=== PATIENT | female | born 1960 | race Caucasian/White ===

== ENCOUNTER 2016-04-16 19:47 | Emergency (ER) | payer BC ==
[~2016-04-16] VITALS: Ht 170.2 cm; Wt 74.1 kg
[~2016-04-16 19:47] MED LIST: ADULT LOW DOSE81 M1 PO; ANTIVERT25 MG PO; ASPIR 8181 M1 PO; ASPIR-LOW81 MG PO; ASPIRIN81 M2 PO; ATORVASTATIN CA10 MG PO; AVONEX IM; AVONEX PEN30 MCG/0.1 IM; AVONEX30 MICROGR IM; CRESTOR20 MG PO; DEXILANT30 MG PO; LO-DOSE ASPIRIN81 M1 PO; LORAZEPAM0.5 MG PO; MEDROL DOSEPAK4 MG PO; MILLIPRED DP5 MG PO; NOHOMEMEDS; OMEPRAZOLE40 M1 PO; ONDANSETRON ODT4 MG PO; PLEGRIDY125 MCG/0. SC; PRILOSEC40 MG PO; RANEXA500 MG PO; SOLU-MEDROL2 GM IV; TOPAMAX15 MG PO; TOPAMAX25 MG PO; TOPIRAMATE15 MG PO; TOPROL XL25 MG PO; TOPROL XL6.25 MG PO; TYLENOL EXTRA500 MG PO; Topamax PO; Toprol XL PO; VITAMIN D1000 UNIT PO; ZETIA10 MG PO
[2016-04-16 21:16] LABS: HEMATOCRIT 39.5 % (36.0-46.0); MCH 31.2 PG (29.0-34.0); MCHC 34.4 G/DL (30.0-36.0); MCV 90.6 FL (83-99); MEAN PLAT.VOLUME 10.3 uM^3 (9.5-12.4); PLATELET COUNT 184 K/uL (156-360); RBC DIS.WIDTH-CV 12.5 % (11.8-14.6); RBC DIS.WIDTH-SD 40.7 % (39-53); RED BLOOD COUNT 4.36 M/uL (3.80-5.20)
[2016-04-16 21:25] LABS: CHLORIDE 113 mEq/L (99-109); POTASSIUM 3.7 mEq/L (3.7-5.4); SODIUM 144 mEq/L (136-147)
[2016-04-16 21:27] LABS: GLUCOSE 116 mg/dL (70-99)
[2016-04-16 21:28] LABS: ANION GAP 7 MEQ/L (2-14)
[2016-04-16 21:30] LABS: D-DIMER ELISA < 0.15 mg/L FEU (< 0.57)
[2016-04-16 21:31] LABS: GFR ESTIMATE (CALCULATED) > 59 mL/min/
[2016-04-16 21:32] LABS: UREA NITROGEN (BUN) 21 mg/dL (9-23)
[2016-04-16 21:37] LABS: TROP-I INTERPRETATION NEGATIVE; TROPONIN-I < 0.01 ng/mL (0.0-0.30)
[2016-04-17 00:04] LABS: TROP-I INTERPRETATION NEGATIVE; TROPONIN-I < 0.01 ng/mL (0.0-0.30)
[2016-04-17 01:40] VITALS: BP 103/66
== END 2016-04-17 01:47 | disposition home or self-care (01) ==
LOC: EME 19:47
PROVIDERS: Emergency Medicine
DX: R07.9 Chest pain, unspecified (principal); I48.91 Unspecified atrial fibrillation; I25.10 Atherosclerotic heart disease of native coronary artery without angina pectoris; Z79.82 Long term (current) use of aspirin
CPT/HCPCS: 71020; 80048; 83880; 84484; 85027; 85379; 93005; 99281; 99285; J7030

== ENCOUNTER 2016-07-22 09:55 | Emergency (ER) | payer BC ==
[~2016-07-22] VITALS: Ht 170.2 cm; Wt 76.4 kg
[2016-07-22 12:38] LABS: HEMATOCRIT 44.5 % (36.0-46.0); MCH 30.8 PG (29.0-34.0); MCHC 32.4 G/DL (30.0-36.0); MCV 95.3 FL (83-99); MEAN PLAT.VOLUME 10.5 uM^3 (9.5-12.4); PLATELET COUNT 177 K/uL (156-360); RBC DIS.WIDTH-CV 12.6 % (11.8-14.6); RBC DIS.WIDTH-SD 43.1 % (39-53); RED BLOOD COUNT 4.67 M/uL (3.80-5.20); WHITE BLOOD COUNT 6.5 K/uL (4.1-10.2)
[2016-07-22 12:46] LABS: D-DIMER ELISA < 0.15 mg/L FEU (< 0.57)
[2016-07-22 12:51] LABS: CHLORIDE 110 mEq/L (99-109); POTASSIUM 3.9 mEq/L (3.7-5.4); SODIUM 142 mEq/L (136-147)
[2016-07-22 12:53] LABS: GLUCOSE 103 mg/dL (70-99)
[2016-07-22 12:55] LABS: ANION GAP 9 MEQ/L (2-14)
[2016-07-22 12:57] LABS: GFR ESTIMATE (CALCULATED) > 59 mL/min/
[2016-07-22 12:58] LABS: UREA NITROGEN (BUN) 16 mg/dL (9-23)
[2016-07-22] MEDS ORDERED: PHENERGAN-CODE120 ML PO (15:03)
[2016-07-22 16:00] VITALS: BP 118/76
== END 2016-07-22 16:01 | disposition home or self-care (01) ==
LOC: EME 09:55
PROVIDERS: Emergency Medicine
DX: R07.9 Chest pain, unspecified (principal); M94.0 Chondrocostal junction syndrome [Tietze]; G35 Multiple sclerosis
CPT/HCPCS: 71275; 80048; 85027; 85379; 93005; 94640; 99281; 99285

== ENCOUNTER 2016-11-02 21:29 | Observation (INO) | payer BC ==
[~2016-11-02] VITALS: Ht 170.2 cm; Wt 75.2 kg
[~2016-11-02 21:29] MED LIST changes: +BETASERON0.3 MG SC; +PHENERGAN-CODE120 ML PO
[2016-11-02 22:37] LABS: HEMATOCRIT 42.1 % (36.0-46.0); MCH 31.7 PG (29.0-34.0); MCHC 33.3 G/DL (30.0-36.0); MCV 95.2 FL (83-99); MEAN PLAT.VOLUME 10.3 uM^3 (9.5-12.4); PLATELET COUNT 161 K/uL (156-360); RBC DIS.WIDTH-CV 13.2 % (11.8-14.6); RBC DIS.WIDTH-SD 45.7 % (39-53); RED BLOOD COUNT 4.42 M/uL (3.80-5.20); WHITE BLOOD COUNT 6.2 K/uL (4.1-10.2)
[2016-11-02 22:48] LABS: CHLORIDE 111 mEq/L (99-109); GLUCOSE 93 mg/dL (70-99); POTASSIUM 3.8 mEq/L (3.7-5.4); SODIUM 141 mEq/L (136-147)
[2016-11-02 22:50] LABS: ANION GAP 7 MEQ/L (2-14)
[2016-11-02 22:52] LABS: GFR ESTIMATE (CALCULATED) > 59 mL/min/; PROTHROMBIN TIME 11.5 SEC (10.2-12.9)
[2016-11-02 22:53] LABS: UREA NITROGEN (BUN) 19 mg/dL (9-23)
[2016-11-02 22:54] LABS: D-DIMER ELISA < 150.00 ng/mLDDU (<230)
[2016-11-02 22:55] LABS: PTT 35.3 SEC (25-37)
[2016-11-02 22:57] LABS: TROP-I INTERPRETATION NEGATIVE; TROPONIN-I < 0.01 ng/mL (0.0-0.30)
[2016-11-02 23:05] LABS: QUANTITATIVE HCG < 4.0 MIU/ML
[2016-11-02 23:11] LABS: ADD MIUA? NO; BILIRUBIN NEGATIVE; BLOOD NEGATIVE; COLOR YELLOW ((YELLOW)); GLUCOSE (STRIP) NEGATIVE; KETONES NEGATIVE; LEUKOCYTES NEGATIVE; NITRITE NEGATIVE; PROTEIN (STRIP) NEGATIVE; SPECIFIC GRAVITY 1.024 (1.000-1.030); UCUL ADDED? NO
[2016-11-03 02:13] VITALS: BP 132/60
[2016-11-03 04:08] VITALS: BP 103/53
[2016-11-03 06:24] LABS: TROP-I INTERPRETATION NEGATIVE; TROPONIN-I < 0.01 ng/mL (0.0-0.30)
[2016-11-03] MEDS ORDERED: METOPROLOL SUCC25 MG PO (11:48)
[2016-11-03] MEDS ORDERED: VITAMIN D31000 UNI2 PO (11:51)
[2016-11-03 11:55] VITALS: BP 112/53
[2016-11-03 12:31] LABS: TROP-I INTERPRETATION NEGATIVE; TROPONIN-I < 0.01 ng/mL (0.0-0.30)
[2016-11-03 14:58] VITALS: BP 118/65
[2016-11-03] MEDS ORDERED: INDOCIN25 MG PO (16:08)
== END 2016-11-03 18:06 | disposition home or self-care (01) ==
LOC: EME 21:29 → EDOF 23:33 → 5WEST 23:33 → EDOF 23:33 → ENRESERV 23:34 → 5WEST 11-03 02:02
PROVIDERS: Emergency Medicine; Hospitalist
DX: R07.89 Other chest pain (principal); I25.10 Atherosclerotic heart disease of native coronary artery without angina pectoris; G35 Multiple sclerosis; K21.9 Gastro-esophageal reflux disease without esophagitis; Z82.49 Family history of ischemic heart disease and other diseases of the circulatory system
CPT/HCPCS: 71020; 80048; 81003; 84484; 84702; 85027; 85379; 85610; 85730; 93005; 93306; 99281; 99285; G0378; J1650; J1885; J2270; J2405; J7030